=== PATIENT | male | born 1960 | race Caucasian/White ===

== ENCOUNTER 2016-12-11 12:34 | Emergency (ER) | payer OTHER ==
[~2016-12-11] VITALS: Ht 172.7 cm; Wt 77.1 kg
--- NOTE | 2016-12-11 12:45 | NUR ---
PT WAS CALLED [facility], BUT NO RESPONSE.
--- NOTE | 2016-12-11 13:50 | NUR ---
Patient discharged to home in stable conditon. Written and verbal after care instructions given. Patient verbalizes understanding of instructions.
== END 2016-12-11 13:51 | disposition home or self-care (01) ==
LOC: ER 12:34
DX: S61.210A Laceration without foreign body of right index finger without damage to nail, initial encounter (principal); X58.XXXA Exposure to other specified factors, initial encounter; Y93.89 Activity, other specified; Y92.9 Unspecified place or not applicable; Y99.9 Unspecified external cause status
CPT/HCPCS: 12001; 99283; A4663; J3490

== ENCOUNTER 2016-12-24 14:48 | Emergency (ER) | payer OTHER ==
[~2016-12-24] VITALS: Ht 172.7 cm; Wt 77.1 kg
--- NOTE | 2016-12-24 14:55 | NUR ---
Patient discharged to home in stable conditon. Verbal after care instructions given to patient. Patient verbalizes understanding of instructions.
== END 2016-12-24 14:57 | disposition home or self-care (01) ==
LOC: ER 14:48
DX: S61.211D Laceration without foreign body of left index finger without damage to nail, subsequent encounter (principal); X58.XXXD Exposure to other specified factors, subsequent encounter
CPT/HCPCS: A4663

== ENCOUNTER 2017-04-06 13:06 | Emergency (ER) | payer BC, OTHER ==
[~2017-04-06] VITALS: Ht 172.7 cm; Wt 73.5 kg
--- NOTE | 2017-04-06 13:50 | NUR ---
ER MD BELTRE IS AT BEDSIDE. MEDICAL EVAL COMPLETED.
[2017-04-06 14:27] LABS: BASOPHILS % (AUTO) 0.3 % (0.0-2.0); EOSINOPHILS % (AUTO) 0.1 % (0.0-7.0); HEMATOCRIT 39.5 % (36.7-47.1); HEMOGLOBIN 13.8 g/dL (12.5-16.3); LYMPHOCYTES # (AUTO) 2.9 K/uL (20.0-40.0); LYMPHOCYTES % (AUTO) 34.6 % (20.5-51.5); MEAN CORPUSCULAR HEMOGLOBIN 30.6 uug (23.8-33.4); MEAN CORPUSCULAR HGB CONC 35 g/dL (32.5-36.3); MONOCYTES # (AUTO) 0.6 K/uL (2.0-10.0); MONOCYTES % (AUTO) 7.6 % (0.0-11.0); NEUTROPHILS # (AUTO) 4.8 K/uL (1.8-8.9); NEUTROPHILS % (AUTO) 57.4 % (38.5-71.5); PLATELET COUNT (AUTO) 213 K/uL (152-348); RED BLOOD CELL COUNT(AUTO) 4.49 MIL/uL (4.06-5.63); WHITE BLOOD COUNT (AUTO) 8.4 K/uL (3.6-10.2)
[2017-04-06 14:33] LABS: CARBON DIOXIDE 26 mmol/L (21-32); CHLORIDE 101 mmol/L (98-107); CREATININE 1.1 mg/dL (0.6-1.3); GLUCOSE 123 mg/dL (74-106); POTASSIUM 3.9 mmol/L (3.5-5.1); UREA NITROGEN, BLOOD 13 mg/dL (7-18)
--- NOTE | 2017-04-06 14:35 | NUR ---
PT IN BED. NO SIGNS OF DISTRESS WITNESS.
[2017-04-06 14:46] LABS: ALANINE AMINOTRANSFERASE 44 U/L (16-63); ALKALINE PHOSPHATASE 71 U/L (50-136); ASPARTATE AMINOTRANSFERASE 23 U/L (15-37); BILIRUBIN,DIRECT < 0.1 mg/dL (0.0-0.2); BILIRUBIN,TOTAL 0.3 mg/dL (0.2-1.0); TOTAL PROTEIN, SERUM 7.5 g/dL (6.4-8.2)
[2017-04-06] MEDS: OSELTAMIVIR PHOSPHATE 75 MG CAPSULE PO ONE (15:06)
[2017-04-06] MEDS: IBUPROFEN 800 MG TABLET PO ONE (15:06)
--- NOTE | 2017-04-06 15:07 | NUR ---
Patient discharged to home in stable conditon. Written and verbal after care instructions given. Patient verbalizes understanding of instructions.pt walks in steady gait, breathinf normally, no sign of distress.
[2017-04-06 15:09] VITALS: BP 131/79
[2017-04-06] MEDS ORDERED: IBUPROFEN 800 MG TABLET ONE (15:22)
[2017-04-06] MEDS ORDERED: OSELTAMIVIR PHOSPHATE 75 MG CAPSULE ONE (15:22)
== END 2017-04-06 15:10 | disposition home or self-care (01) ==
LOC: ER 13:09
DX: J11.1 Influenza due to unidentified influenza virus with other respiratory manifestations (principal)
CPT/HCPCS: 36415; 70030-TC; 71045; 83605; 85025; 85730; 87040; 87400; 93005; A4663

== ENCOUNTER 2018-06-07 12:34 | Emergency (ER) | payer BC, OTHER ==
[~2018-06-07] VITALS: Ht 172.7 cm; Wt 74.8 kg
--- NOTE | 2018-06-07 12:49 | NUR ---
DR Denise at the bedside for MSE.
[2018-06-07] MEDS ORDERED: IBUPROFEN 600 MG TABLET ONE (12:56)
[2018-06-07] MEDS ORDERED: NEOMY/BACITRA/POLYMYXIN B OINT UD PACKET TP ONE ×3 (12:58→13:15)
[2018-06-07] MEDS ORDERED: BACITRACIN ZINC OINT 15 GM TUBE TOP ONE (13:00)
[2018-06-07] MEDS ORDERED: IBUPROFEN 600 MG TABLET PO ONE (13:00)
[2018-06-07 13:02] VITALS: BP 142/85
--- NOTE | 2018-06-07 13:18 | NUR ---
Patient discharged to home in stable conditon. Written and verbal after care instructions given. Patient verbalizes understanding of instructions.
== END 2018-06-07 13:18 | disposition home or self-care (01) ==
LOC: ER 12:34
DX: S60.512A Abrasion of left hand, initial encounter (principal); M79.10 Myalgia, unspecified site; X58.XXXA Exposure to other specified factors, initial encounter; Y93.89 Activity, other specified; Y92.89 Other specified places as the place of occurrence of the external cause; Y99.8 Other external cause status
CPT/HCPCS: A4663

== ENCOUNTER 2019-02-01 16:02 | Emergency (ER) | payer BC, OTHER ==
[~2019-02-01] VITALS: Ht 172.7 cm; Wt 74.8 kg
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
--- NOTE | 2019-02-01 16:27 | NUR ---
ERMD at bedside for MSE
[2019-02-01] MEDS ORDERED: IBUPROFEN 800 MG TABLET ONE (16:37)
[2019-02-01] MEDS ORDERED: IBUPROFEN 800 MG TABLET PO ONE (16:45)
--- NOTE | 2019-02-01 17:35 | NUR ---
Patient discharged to home in stable conditon. Written and verbal after care instructions given. Patient verbalizes understanding of instructions. pt ambulating with steady gait.
[2019-02-01 17:36] VITALS: BP 128/72
== END 2019-02-01 17:35 | disposition home or self-care (01) ==
LOC: ER 16:09
DX: S13.4XXA Sprain of ligaments of cervical spine, initial encounter (principal); S39.012A Strain of muscle, fascia and tendon of lower back, initial encounter; V89.2XXA Person injured in unspecified motor-vehicle accident, traffic, initial encounter; Y93.89 Activity, other specified; Y92.410 Unspecified street and highway as the place of occurrence of the external cause; Y99.8 Other external cause status
CPT/HCPCS: 72125; 72131; A4663

== ENCOUNTER 2019-02-08 08:01 | Outpatient (CLI) | payer BC, OTHER ==
[2019-02-08 09:17] LABS: BASOPHILS % (AUTO) 0.4 % (0.0-2.0); EOSINOPHILS # (AUTO) 0.1 K/uL (0.0-0.7); EOSINOPHILS % (AUTO) 0.9 % (0.0-7.0); HEMATOCRIT 41.9 % (36.7-47.1); HEMOGLOBIN 14.4 g/dL (12.5-16.3); LYMPHOCYTES # (AUTO) 6.4 K/uL (20.0-40.0); LYMPHOCYTES % (AUTO) 65.5 % (20.5-51.5); MEAN CORPUSCULAR HEMOGLOBIN 30.9 uug (23.8-33.4); MEAN CORPUSCULAR HGB CONC 34 g/dL (32.5-36.3); MEAN CORPUSCULAR VOLUME 89.8 fL (73.0-96.2); MONOCYTES # (AUTO) 0.3 K/uL (2.0-10.0); MONOCYTES % (AUTO) 2.8 % (0.0-11.0); NEUTROPHILS % (AUTO) 30.4 % (38.5-71.5); PLATELET COUNT (AUTO) 248 K/uL (152-348); RED BLOOD CELL COUNT(AUTO) 4.67 MIL/uL (4.06-5.63); WHITE BLOOD COUNT (AUTO) 9.7 K/uL (3.6-10.2)
[2019-02-08 09:28] LABS: BILIRUBIN,TOTAL 0.4 mg/dL (0.2-1.0); CREATININE 0.9 mg/dL (0.6-1.3); POTASSIUM 3.8 mmol/L (3.5-5.1)
[2019-02-08 09:33] LABS: THYROID STIMULATING HORMONE 2.866 mIU/mL (0.358-3.740)
[2019-02-08 11:12] LABS: *BILIRUBIN,URIN NEGATIVE (NEGATIVE); *BLOOD, URINE NEGATIVE (NEGATIVE); *CLARITY,URINE CLEAR (CLEAR); *COLOR,URINE YELLOW (YELLOW); *KETONES,URINE NEGATIVE (NEGATIVE); *UROBILINOGEN,URINE 0.2 E.U./dl (NORMAL); LEUKOCYTE ESTERASE ,URINE NEGATIVE (NEGATIVE); NITRITE, URINE NEGATIVE (NEGATIVE); UGLUCOSE NEGATIVE (NEGATIVE)
[2019-02-09 07:06] LABS: *PSA 0.5 ng/mL (0.0-4.0)
== END 2019-02-08 23:59 | disposition home or self-care (01) ==
LOC: LAB 08:01
PROVIDERS: ATTEND Family Medicine
DX: Z00.01 Encounter for general adult medical examination with abnormal findings (principal); Z12.5 Encounter for screening for malignant neoplasm of prostate; Z11.59 Encounter for screening for other viral diseases; E55.9 Vitamin D deficiency, unspecified
CPT/HCPCS: 36415; 82306; 84153; 84443; 85025; 86803; 87086

== ENCOUNTER 2019-03-24 13:21 | Emergency (ER) | payer BC, OTHER ==
[~2019-03-24] VITALS: Ht 172.7 cm; Wt 74.8 kg
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
--- NOTE | 2019-03-24 13:45 | NUR ---
ERMD at bedside for MSE
[2019-03-24] MEDS ORDERED: HYDROCODONE/APAP 5-325MG TABLET ONE (13:59)
[2019-03-24] MEDS ORDERED: IBUPROFEN 800 MG TABLET ONE (13:59)
[2019-03-24] MEDS ORDERED: HYDROCODONE/APAP 5-325MG TABLET PO ONE (14:00)
[2019-03-24] MEDS ORDERED: IBUPROFEN 800 MG TABLET PO ONE (14:00)
--- NOTE | 2019-03-24 15:07 | NUR ---
Patient back in room from CT
--- NOTE | 2019-03-24 16:49 | NUR ---
Patient discharged to home in stable conditon. Written and verbal after care instructions given. Patient verbalizes understanding of instructions. Patient ambulated with stable gait.
[2019-03-24 16:51] VITALS: BP 143/63
== END 2019-03-24 16:51 | disposition home or self-care (01) ==
LOC: ER 13:23
DX: S60.111A Contusion of right thumb with damage to nail, initial encounter (principal); S70.12XA Contusion of left thigh, initial encounter; S53.401A Unspecified sprain of right elbow, initial encounter; S43.401A Unspecified sprain of right shoulder joint, initial encounter; S23.41XA Sprain of ribs, initial encounter; S13.4XXA Sprain of ligaments of cervical spine, initial encounter; S33.5XXA Sprain of ligaments of lumbar spine, initial encounter; S09.90XA Unspecified injury of head, initial encounter; Y04.2XXA Assault by strike against or bumped into by another person, initial encounter; Y93.89 Activity, other specified; Y92.89 Other specified places as the place of occurrence of the external cause; Y99.8 Other external cause status
CPT/HCPCS: 11740; 70450; 70486; 71101; 72125; 73030; 73080; 73090; 73110; 73130; 73551; A4663

== ENCOUNTER 2019-08-17 10:35 | Emergency (ER) | payer BC, OTHER ==
--- NOTE | 2019-08-17 10:48 | NUR ---
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
--- NOTE | 2019-08-17 11:32 | NUR ---
Swab for COVID-19 collected and sent to lab by ORLIN Rachel. Patient discharged to home in stable condition. Written and verbal after care instructions given. Patient verbalizes understanding of instructions. Stressed follow up with employee health or return to ER for worsening s/s.
[2019-08-17 11:40] VITALS: BP 142/67
== END 2019-08-17 11:03 | disposition home or self-care (01) ==
LOC: ER 10:35
DX: Z03.818 Encounter for observation for suspected exposure to other biological agents ruled out (principal)
CPT/HCPCS: 99283; U0003; A4663

== ENCOUNTER 2022-03-10 07:40 | Outpatient (CLI) | payer BC ==
[2022-03-10] MEDS ORDERED: DIATR MEGLU/DIATRIZOATE SODIUM 30 ML BOTTLE ONE (11:36)
[2022-03-10] MEDS ORDERED: SWABABLE VALVE TRANSFER SET EA MC ONE (13:11)
[2022-03-10] MEDS ORDERED: IOHEXOL 300MG/ML 100 ML INFUS..BTL ONE (13:11)
[2022-03-10] MEDS ORDERED: IV NORMAL SALINE 250 ML IV ONE (13:11)
== END 2022-03-10 23:59 | disposition home or self-care (01) ==
LOC: CT 07:40 → LAB 23:59
PROVIDERS: ATTEND Family Medicine
DX: K57.30 Diverticulosis of large intestine without perforation or abscess without bleeding (principal); M47.817 Spondylosis without myelopathy or radiculopathy, lumbosacral region; R10.9 Unspecified abdominal pain
CPT/HCPCS: 74177; 82565; 84520; 36415; Q9967; Q9963

== ENCOUNTER 2022-08-19 15:06 | Outpatient (CLI) | payer BC ==
[2022-08-19 16:06] LABS: HEMATOCRIT 39.6 % (36.7-47.1); MEAN CORPUSCULAR VOLUME 89.3 fL (73.0-96.2); PLATELET COUNT (AUTO) 226 K/uL (152-348)
== END 2022-08-19 23:59 | disposition home or self-care (01) ==
LOC: LAB 15:06
PROVIDERS: ATTEND Family Medicine
DX: Z79.899 Other long term (current) drug therapy (principal)
CPT/HCPCS: 36415; 85025